=== PATIENT | female | born 1975 | race Caucasian/White ===

== ENCOUNTER 2016-05-31 23:39 | Emergency (ER) | payer BC ==
--- NOTE | 2016-06-10 23:29 | ER ---
ADMIT: 05/31/2016 RM/LOC: ER [facility] MR#: [id number] [address] [id number] SENA MONTEZMarcelino Montalvo [address] [place] [address] Emergency Room Report SEX: F AGE: 40 : 1975 DATE: 05/31/2016 CHIEF COMPLAINT: Vertigo. HISTORY OF PRESENT ILLNESS: The patient is a 40-year-old female, who has had intermittent vertigo symptoms for the past 5 days. She seems like she did have pretty well control of it the last couple of days, but this evening, she laid down in bed, turned over on her left side, and when she turned her head back over the right, she had severe symptoms that did not respond to her Antivert. She had numerous episodes of vomiting, and if she had any movement other than sitting completely upright and looking straight ahead, she had severe symptoms. She denies any recent illness. No fevers, chills. No cold symptoms, ringing in her ears, or pain in her ears. PAST MEDICAL HISTORY: No chronic medical problems. PAST SURGICAL HISTORY: She has had a , cholecystectomy, and a diskectomy. SOCIAL HISTORY: She does not smoke. Denies drug use and uses alcohol socially. MEDICATIONS: See nurse's note. ALLERGIES: PHENERGAN. PHYSICAL EXAMINATION: GENERAL: The patient is alert, in no distress. HEENT: Head is atraumatic. Pupils are equal, round, reactive to light. She does have lateral nystagmus. TMs show no abnormality. NECK: Supple. Airway is patent. Breathing comfortably. NEUROLOGIC: Sensory exam is intact in all 4 extremities. EMERGENCY DEPARTMENT COURSE: The patient was given Zofran for nausea and then was given a shot of Ativan. She had some relief with that but was still somewhat symptomatic. She was then given p.o. Valium, and after approximately 30 minutes had significant improvement. She felt like she was okay to be discharged at this point. She was sent home with a prescription for Valium. She is to use that only if her symptoms do not resolve with use of her Antivert. She is to follow up with Dr. Talamantes if not improving. DIAGNOSIS: Vertigo. Glynn Belcher MD/ gayle JOB #: [id number] CC: Glynn Belcher MD, Attending Physician ADMIT: 05/31/2016 RM/LOC: [facility] MR#: [id number] [facility] [address] [address] ANNALISA MONTEZ [address] [place] [address] Emergency Room Report SEX: F AGE: 40 : 1975 Darcie Talamantes MD, Family Physician
== END 2016-06-01 01:37 | disposition home or self-care (01) ==
LOC: ER 23:39
DX: R42 Dizziness and giddiness (principal); Z90.49 Acquired absence of other specified parts of digestive tract; Z88.8 Allergy status to other drugs, medicaments and biological substances; Z79.899 Other long term (current) drug therapy